=== PATIENT | female | born 1970 | race Caucasian/White ===

== ENCOUNTER 2016-11-10 10:25 | Emergency (ER) | payer OTHER ==
[~2016-11-10] VITALS: Ht 175.3 cm; Wt 80.7 kg
[~2016-11-10 10:25] MED LIST: FOLIC ACID1 MG PO; METHOTREXA25 MG/1 ML INJ
[2016-11-10] MEDS ORDERED: IBUPROFEN800 MG PO (10:42)
[2016-11-10] MEDS ORDERED: ZOFRAN ODT4 MG PO (11:47)
[2016-11-10] MEDS ORDERED: BENTYL10 MG PO (11:47)
== END 2016-11-10 12:15 | disposition home or self-care (01) ==
LOC: ED 10:25
DX: R10.32 Left lower quadrant pain (principal); F17.200 Nicotine dependence, unspecified, uncomplicated; Z90.710 Acquired absence of both cervix and uterus; Z90.49 Acquired absence of other specified parts of digestive tract; Z88.5 Allergy status to narcotic agent; Z88.1 Allergy status to other antibiotic agents; Z79.899 Other long term (current) drug therapy
CPT/HCPCS: 80053; 81001; 85025; 96361; 96374; 96375; 99283; J1170; J1885; J2405; J7030

== ENCOUNTER 2018-07-18 17:50 | Emergency (ER) | payer OTHER ==
--- OUTSIDE RECORDS SUMMARY | ~2018-07-18 | XMS | Clinical Summary ---
Demographics + + + | Address | [address] | | | [place] [address] | + + + | Home Phone | | + + + | Preferred Language | Unknown | + + + | Marital Status | Single | + + + | Hindu Affiliation | Unknown | + + + | Race | Unknown | + + + | Ethnic Group | Unknown | + + + Author + + + | Author | [facility] | | | and Devynana | + + + | Organization | [facility] | | | and Devynana [...] [place], [place] | | | | | [address] | | + + + + + Care Team Providers + +------+ + | Care Customer Account Representative Name | Role | Phone | + [...] +--------+ +---------+------+ | GEHA | GEHA | [id number] | | [phone] | | PPO | | | AETNA | | 016-Pr | 6 | | | | | PPO | | esent | | | | +-------+--------+ +--------+ +---------+------+ | SERENITYROSARIO | GUILLAUME | [id number] | [birth year]29[birth year] | [phone] | | PPO [...] | 1971 | [phone] | [place] [address] | | | larisa | | | 8 (Home) | | + +--------+ +--------+ + + | Remedios Michelle | Person | Self | [birth year] | | [address] | | | al/Fam | | 1971 | [phone] | [address] [place] | | | [place] | | | 8 (Home) | [address] | + +--------+ +--------+ + + Advance Directives Patient has advance care planning documents, and code status on file. For more information, please contact:[facility] [place] Cabrera [address] + + + + + | Code Status | Date | Date | Comments | | | Activated | Inactivated | | + + + + + | Full Code | 05/18/2017 | 05/19/2017 | | | | 14:00 | 23:08 | | + + + + +
--- OUTSIDE RECORDS SUMMARY | ~2018-07-18 | XMS | Clinical Summary ---
Demographics + + + | Address | [address] | | | [place] [address] | + + + | Home Phone | | + + + | Preferred Language | Unknown | + + + | Marital Status | Single | + + + | Scientologist Affiliation | Unknown | + + + | Race | Unknown | + + + | Ethnic Group | Unknown | + + + Author + + + | Author | [facility] | | | and Devynana | + + + | Organization | [facility] | | | and Devynana [...] [place], [place] | | | | | [address] | | + + + + + Care Team Providers + +------+ + | Care Animal Ride Attendant Name | Role | Phone | + [...] +--------+ +---------+------+ | GEHA | GEHA | [id number] | | [phone] | | PPO | | | AETNA | | 016-Pr | 6 | | | | | PPO | | esent | | | | +-------+--------+ +--------+ +---------+------+ | SERENITYROSARIO | GUILLAUME | [id number] | [birth year] | [phone] | | PPO [...] | 1971 | [phone] | [place] [address] | | | [place]isa | | | 8 (Home) | | + +--------+ +--------+ + + | Remedios Michelle | Person | Self | [birth year] | | [address] | | | al/Fam | | 1971 | [phone] | [address] [place] | | | [place] | | | 8 (Home) | [address] | + +--------+ +--------+ + + Advance Directives Patient has advance care planning documents, and code status on file. For more information, please contact:[facility] [place]rera [address] + + + + + | Code Status | Date | Date | Comments | | | Activated | Inactivated | | + + + + + | Full Code | 05/18/2017 | 05/19/2017 | | | | 14:00 | 23:08 | | + + + + +
[~2018-07-18 17:50] MED LIST changes: +BENTYL10 MG PO; +IBUPROFEN800 MG PO; +ZOFRAN ODT4 MG PO
[2018-07-18] MEDS ORDERED: NORCO 7.5-3251 EACH PO (19:48)
[2018-07-18] MEDS ORDERED: ONDANSETRON ODT8 MG PO (19:55)
== END 2018-07-18 20:02 | disposition home or self-care (01) ==
LOC: ED 17:50
DX: S16.1XXA Strain of muscle, fascia and tendon at neck level, initial encounter (principal); S40.012A Contusion of left shoulder, initial encounter; S70.01XA Contusion of right hip, initial encounter; V49.9XXA Car occupant (driver) (passenger) injured in unspecified traffic accident, initial encounter; Z88.5 Allergy status to narcotic agent; Z88.1 Allergy status to other antibiotic agents; Z79.899 Other long term (current) drug therapy
CPT/HCPCS: 71046; 72125; 72170; 73030; 81001; 85025; 96374; 96375; 96376; 99284-25; G0480; J1170; J1885; J2405

== ENCOUNTER 2018-07-25 12:23 | Emergency (ER) | payer OTHER ==
[~2018-07-25] VITALS: Ht 177.8 cm; Wt 65.8 kg
--- OUTSIDE RECORDS SUMMARY | ~2018-07-25 | XMS | Clinical Summary ---
Demographics + + + | Address | [address] | | | [place] [address] | + + + | Home Phone | | + + + | Preferred Language | Unknown | + + + | Marital Status | Single | + + + | Gnosticist Affiliation | Unknown | + + + | Race | Unknown | + + + | Ethnic Group | Unknown | + + + Author + + + | Author | [facility] | | | and Devynana | + + + | Organization | [facility] | | | and Devynana | + + + | Address | Unknown | + + + | Phone | Unavailable | + + + Support + + + + + | Name | Relationship | Address | Phone | + + + + + | David Michelle | ECON | [address] | | | | | [place], [place] | | | | | [address] | | + + + + + Care Team Providers + +------+ + | Care Senior Sas Programmer Name | Role | Phone | + +------+ + | David Black DO | PP | Unavailable | + +------+ + Allergies + + + + + + | Active Allergy | Reactions | Severity | Noted | Comments | | | | | Date | | + + + + + + | Azithromycin | | | 09/18/19 | | | | | | 16 | | + + + + + + | Codeine | Hives, Swelling | | 09/18/19 | Tongue swelling | | | | | 16 | | + + + + + + | Erythromycin | Hives, Swelling | | 04/21/19 | Tongue swelling | | | | | 18 | | + + + + + + Medications + + + +---------+------+------+-------+ | Medication | Sig | Dispensed | Refills | Star | End | Statu | | | | | | t | Date | s | | | | | | Date | | | + + + +---------+------+------+-------+ | methotrexate (PF) | Inject 15 mg under | | 0 | | | Activ | | 25 mg/mL injection | the skin Once a | | | | | e | | | week. | | | | | | + + + +---------+------+------+-------+ | folic acid 1 mg | Take 1 mg by mouth | | 0 | | | Activ | | tablet | Daily. | | | | | e | + + + +---------+------+------+-------+ | cyanocobalamin | Take 50 mcg by mouth | | 0 | | | Activ | | (VITAMIN B-12) 50 | Daily. | | | | | e | | MCG tablet | | | | | | | + + + +---------+------+------+-------+ | raNITIdine | Take 150 mg by mouth | | 0 | | | Activ | | (ZANTAC) 150 mg | Twice daily as | | | | | e | | tablet | needed for | | | | | | | | Heartburn. | | | | | | + + + +---------+------+------+-------+ | ondansetron | | | 0 | 02/2 | | Activ | | (ZOFRAN ODT) 4 mg | | | | 8/20 | | e | | disintegrating | | | | 18 | | | | tablet | | | | | | | + + + +---------+------+------+-------+ | oxyCODONE | | | 0 | 02/2 | | Activ | | (ROXICODONE) 5 mg | | | | 8/20 | | e | | tablet | | | | 18 | | | + + + +---------+------+------+-------+ Active Problems + + + | Problem | Noted Date | + + + | Sjogren's disease | 04/21/2017 | + + + | Rheumatoid arthritis with positive rheumatoid factor | 04/21/2017 | + + + | Sialolithiasis | 04/21/2017 | + + + | Sialadenitis | 04/21/2017 | + + + Family History + + +------+ + | Medical History | Relation | Name | Comments | + + +------+ + | Other cancer | Father | | larynx | + + +------+ + | Other (see comment) | Maternal | | a-fib | | | Grandmoth | | | | | er | | | + + +------+ + | Other (see comment) | Mother | | a-fib | + + +------+ + | Other cancer | Mother | | cervical/uterin | + + +------+ + + +------+--------+ + | Relation | Name | Status | Comments | + +------+--------+ + | Father | | | | + +------+--------+ + | Maternal Grandmother | | | | + +------+--------+ + | Mother | | | | + +------+--------+ + Social History + +-------+ +--------+------+ | Tobacco Use | Types | Packs/Day | Years | Date | | | | | Used | | + +-------+ +--------+------+ | Never Smoker | | | | | + +-------+ +--------+------+ + +---+---+---+ | Smokeless Tobacco: | | | | | Never Used | | | | + +---+---+---+ + + +---------+ + | Alcohol Use | Drinks/We | oz/Week | Comments | | | ek | | | + + +---------+ + | No | 0 | 0.0 | | | | Standard | | | | | drinks or | | | | | | | | | | equivalen | | | | | t | | | + + +---------+ + + + + | Sex Assigned at | Date Recorded | | | | + + + | Not on file | | + + + + + + + | Job Start Date | Occupation | Industry | + + + + | Not on file | Not on file | Not on file | + + + + + + + + | Travel History | Travel Start | Travel End | + + + + + + | No recent travel history available. | + + Last Filed Vital Signs + + + + | Vital Sign | Reading | Time Taken | + + + + | Blood Pressure | 120/64 | 05/24/20171522 PST | + + + + | Pulse | 82 | 05/24/20171522 PST | + + + + | Temperature | 36.8 C (98.2 F) | 05/19/2017 1141 PST | + + + + | Respiratory Rate | 16 | 05/24/20171522 PST | + + + + | Oxygen Saturation | 99% | 05/24/20171522 PST | + + + + | Inhaled Oxygen | - | - | | Concentration | | | + + + + | Weight | 72.6 kg (160 lb) | 05/24/20171522 PST | + + + + | Height | 177.8 cm (5' 10") | 05/24/20171522 PST | + + + + | Body Mass Index | 22.96 | 05/24/20171522 PST | + + + + Plan of Treatment + + + + + | Health Maintenance | Due Date | Last Done | Comments | + + + + + | Vaccine: | | | | | Dtap/Tdap/Td (1 - | 1 | | | | Tdap) | | | | + + + + + | Cervical Cancer | | | | | Screening (Pap) | 2 | | | + + + + + | Vaccine: Influenza | | | | | (Season Ended) | 9 | | | + + + + + Results Not on filefrom Last 3 Months Insurance +-------+--------+ +--------+ +---------+------+ | Payer | Benefi | Subscriber | Effect | Phone | Address | Type | | | t Plan | ID | bryant | | | | | | / | | Dates | | | | | | Group | | | | | | +-------+--------+ +--------+ +---------+------+ | GEHA | GEHA | [id number] | | [phone] | | PPO | | | AETNA | | 016-Pr | 6 | | | | | PPO | | esent | | | | +-------+--------+ +--------+ +---------+------+ | SERENITYROSARIO | GUILLAUME | [id number] | [birth year]/29/ | [phone] | | PPO | | | AETNA | | 2017-P | 6 | | | | | PPO | | resent | | | | +-------+--------+ +--------+ +---------+------+ + +--------+ +--------+ + + | Guarantor Name | Accoun | Relation to | Date | Phone | Billing Address | | | t Type | Patient | of | | | | | | | | | | + +--------+ +--------+ + + | Remedios Michelle | Person | Self [birth year] | [address] | | | al/[place] | | 1971 | [phone] | [place] [address] | | | [place] | | | 8 (Home) | | + +--------+ +--------+ + + | Remedios Michelle | Person | Self | [birth year] | | [address] | | | al/Fam | | 1971 | [phone] | [address] [place] [place] | | | [place] | | | 8 (Home) | [address] | + +--------+ +--------+ + + Advance Directives Patient has advance care planning documents, and code status on file. For more information, please contact:[facility] [place]rera [address] + + + + + | Code Status | Date | Date | Comments | | | Activated | Inactivated | | + + + + + | Full Code | 05/18/2017 | 05/19/2017 | | | | 14:00 | 23:08 | | + + + + +
--- OUTSIDE RECORDS SUMMARY | ~2018-07-25 | XMS | Clinical Summary ---
Demographics + + + | Address | [address] | | | [place] [address] | + + + | Home Phone | | + + + | Preferred Language | Unknown | + + + | Marital Status | Single | + + + | Church Affiliation | Unknown | + + + | Race | Unknown | + + + | Ethnic Group | Unknown | + + + Author + + + | Author | [facility] | | | and Devynana | + + + | Organization | [facility] | | | and Dveynana | + + + | Address | Unknown | + + + | Phone | Unavailable | + + + Support + + + + + | Name | Relationship | Address | Phone | + + + + + | David Michelle | ECON | [address] | | | | | [place], [place] | | | | | [address] | | + + + + + Care Team Providers + +------+ + | Care Eye Surgeon Name | Role | Phone | + [...] +--------+ +---------+------+ | GEHA | GEHA | [id number] | | [phone] | | PPO | | | AETNA | | 016-Pr | 6 | | | | | PPO | | esent | | | | +-------+--------+ +--------+ +---------+------+ | SERENITYROSARIO | GUILLAUME | [id number] | [birth year]/29/ | [phone] | | PPO [...] | 1971 | [phone] | [place] [address] | | | [place] | | | 8 (Home) | | + +--------+ +--------+ + + | Remedios Michelle | Person | Self | [birth year] | | [address] | | | al/Fam | | 1971 | [phone] | [address] [place] [place] | | | [place] | | | 8 (Home) | [address] | + +--------+ +--------+ + + Advance Directives Patient has advance care planning documents, and code status on file. For more information, please contact:[facility] [place] Cabrera [address] + + + + + | Code Status | Date | Date | Comments | | | Activated | Inactivated | | + + + + + | Full Code | 05/18/2017 | 05/19/2017 | | | | 14:00 | 23:08 | | + + + + +
[~2018-07-25 12:23] MED LIST changes: +NORCO 7.5-3251 EACH PO; +ONDANSETRON ODT8 MG PO
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
[2018-07-25] MEDS ORDERED: METHYLPHENIDATE54 MG PO (12:45)
[2018-07-25] MEDS ORDERED: CYCLOBENZAPRINE10 MG PO (12:46)
[2018-07-25] MEDS ORDERED: DICYCLOMINE HCL10 MG PO (14:36)
[2018-07-25] MEDS ORDERED: NORCO 5-325 TA1 EACH PO (14:36)
== END 2018-07-25 14:52 | disposition home or self-care (01) ==
LOC: ED 12:23
DX: R10.9 Unspecified abdominal pain (principal); Z90.49 Acquired absence of other specified parts of digestive tract; Z90.710 Acquired absence of both cervix and uterus; Z88.5 Allergy status to narcotic agent; Z88.1 Allergy status to other antibiotic agents; Z79.899 Other long term (current) drug therapy
CPT/HCPCS: 74177; 80053; 85025; 99284-25; J1170; J2405; Q9967

== ENCOUNTER 2019-05-18 11:57 | Inpatient (IN) | payer OTHER ==
[~2019-05-18] VITALS: Ht 177.8 cm; Wt 65.8 kg
[~2019-05-18 11:57] MED LIST changes: +CYCLOBENZAPRINE10 MG PO; +DICYCLOMINE HCL10 MG PO; +METHYLPHENIDATE54 MG PO; +NORCO 5-325 TA1 EACH PO
--- NOTE | 2019-05-18 16:10 | NUR ---
Pt arrived from ed on gourney. Pt alert and oriented. vss on room air. NG tube hooked up to LIWS. Pt assessment completed. call light in reach. IVF infusing as ordered.
--- NOTE | 2019-05-18 16:35 | NUR ---
PT REPORTS NAUSEA. PT REQUESTED AND RECEIVED PRN IV PHENERGAN -SEE EMAR. CALL LIGHT IN REACH. NG REMAINS TO LIWS, DRAINING CLEAR BROWN GASTRIC FLUIDS.
--- NOTE | 2019-05-18 17:43 | NUR ---
Med rec completed.
--- NOTE | 2019-05-18 18:10 | NUR ---
PT REPORTS SHARP AND ACHING ABDOMINAL PAIN OF 8/10. PRN IV MORPHINE ADMINISTERED PER PT REQUEST. CALL LIGHT IN REACH. PT REMIANS ON LIWS, DRAINING CLEAR BROWN GASTRIC FLUIDS. PT DENIES FURTHER NEEDS OR CONCERNS. AID IN TO COMPLETED VS'S.
--- NOTE | 2019-05-18 20:00 | NUR ---
NGT Marlon lafleur, patent, draining cranberry colored drainage. On room air, coop with assessment. SCDS in place. IVF infusing. Medicated with Toradol 30mg IV per 8/10 abd pain. NPO for am procedure. Dr Currie here earlier and new orders received. Pt does own mouth care. Awake, alert and oriented, Visiting with family. sitting up in bed
--- NOTE | 2019-05-18 21:23 | NUR ---
c/o abd pain, medicated iwth 1mg IV Dialaudid per 10 abd pain. Up to br, voided, back to bed with assist, NGT patent, no n/v
--- NOTE | 2019-05-18 22:47 | NUR ---
PT C/O ITCHING ALL OVER AFTER TAKING DILAUDID ABOUT 1 HR AGO, DENIES C/O SOB. DR GORDILLO NOTIFIED, NEW ORDERS RECEIVED, DC DILAUDID, RESTART MORPHINE 2-4 MG Q2HP AND GIVE BENADRYL 2MG IV. PT NOTIFIED, DECELINES BENADRYL AT THIS TIME. ' I WILL CALL YOU IF I NEED IT
--- NOTE | 2019-05-18 22:58 | NUR ---
c/o feeling nauseated at 2234, declined zofran, medicated with phenergarn 6.25mg. effective at this time, c/oi itching, medicated with 12.5mg IV Benaddryl itching. awake, watching tv and visiting with family
--- NOTE | 2019-05-19 00:40 | NUR ---
up to br, voided dark yellow-orange urine. Medicated with Morphine 4mg IV c/o 09/28 abd pain. NGT patent, no further c/o itching
--- NOTE | 2019-05-19 01:07 | NUR ---
Provided pt with warm blanket.
--- NOTE | 2019-05-19 04:01 | NUR ---
HAS NOT SLEPT THIS SHIFT. MEDICATED WITH ZOFRAN 8MG IV PER C/O FEELING NAUSEATED, C/O 8/10 ABD PAIN. MEDICATED WITH TORADOL 30MG IV. NGT PATENT R NARE, DRAINING COPIOUS AMOUNTS OF CRANBERRY COLORED DRAINAGE, NG TO ILWS. SCDS IN PLACE. VERY ANXIOUS, EASILY REASSURED, TURNS SELF IN BED. NPO, DOES OWN MOUTH CARE. CALL LIGHT AT BEDSIDE
--- NOTE | 2019-05-19 05:55 | CONS ---
[facility] [address] [place], [place] [address] Signed DATE OF CONSULTATION: 05/18/2019 CHIEF COMPLAINT: Epigastric and left upper quadrant abdominal pain. HISTORY OF PRESENT ILLNESS: Remedios is a 48-year-old female, I have known for many years to our local [employer]. 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 The last 4 days, she has been having rather significant epigastric and left upper quadrant abdominal pain with vomiting and no bowel movement. She finally came to emergency room for evaluation. White count is 10.8, the bicarb is a little low at 17, but the urine specific gravity is also high at 1.069. She seemed to be mildly tender in the epigastric to left upper quadrant area. She has also been a little tachycardic. She required some morphine to control the pain. She therefore had a CT scan of the abdomen and pelvis performed. There appeared to be some loops of dilated small bowel on the left upper quadrant with maybe some tethering. She has moderate stool in the colon and also some diverticulosis and NG tube is in place since she has return of moderately dark bilious gastric fluid, it is at least a liter at this point. The ER physician had called me with respect to the above. She has since been admitted and overall doing fine except the morphine is worn off and her pain has come back. PAST MEDICAL HISTORY: Diverticulosis, Sjogren syndrome, and rheumatoid arthritis. PAST SURGICAL HISTORY: Includes laparoscopic cholecystectomy, hysterectomy, appendectomy, bilateral foot surgery, right knee surgery, tonsillectomy, and adenoidectomy. SOCIAL HISTORY: She quit smoking. She does not drink. She is currently and has 3 children. She prefers the [facility]. Brooke Christie is her sister at [phone]. Shannan Juárez is her primary care provider. 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 FAMILY HISTORY: Mom had cervical and uterine cancer. Dad had squamous cell carcinoma of the esophagus. REVIEW OF SYSTEMS: She had 10 systems reviewed and the diverticulosis was new to her. There is no metal in her body. Electronically Signed By: GODFREY CURRIE MD 05/19/19 0555 PATIENT NAME: REMEDIOS HENSLEY CONSULTATION DATE OF : 72 REPORT #: [id number] PHYSICIAN: GODFREY CURRIE MD PCP: SHANNAN JUÁREZ PA-C REPORT IS CONFIDENTIAL AND NOT TO BE RELEASED WITHOUT AUTHORIZATION [facility] [address] [place], [place] [address] Signed ALLERGIES: Codeine and erythromycin. MEDICATIONS: Zofran and methylphenidate. PHYSICAL EXAMINATION: VITAL SIGNS: Blood pressure 138/81, heart rate is 115, respiratory rate 18, temperature is 97.8. She is 100% on room air, she is 5 feet 10 inches, and 65 kg. GENERAL: Remedios is a 48-year-old female, who is sitting supine semiupright in her hospital bed, watching TV. NG tube is in place. There was at least a liter of moderately bilious gastric fluid in the canister. She appears to be in mild distress from her abdominal pain. LUNGS: Generally clear to auscultation bilaterally. HEART: Mildly tachycardic, but no murmurs. ABDOMEN: Soft, flat, and she points to tenderness in the epigastric and left subcostal area. LABORATORY DATA: Her white blood cell count is 10.8, hemoglobin 15 neutrophils 77. BUN 11, creatinine 0.72, CO2 of 17. Her urine specific gravity is up 1.069. Liver function tests are negative. Albumin is 4. Lipase negative. RADIOGRAPHIC STUDIES: A chest x-ray shows clear lungs with the NG tube in the stomach. The CT scan shows the left upper quadrant mildly dilated small bowel loops with some tethering and also some moderate stool in the colon and diverticulosis. ASSESSMENT AND PLAN: Remedios is a 48-year-old female, who presents with what appears to be a small-bowel obstruction, probably somewhat isolated due to tethering and findings on the CT scan. It has been already several days. She is still dehydrated and tachycardic. I think at this point, we are going to keep her NG tube and hydrate her overnight and provide her with some pain control. If she is not improved by morning, we may add her on tomorrow for a laparotomy with lysis of adhesions. I have reviewed this with Remedios in detail, she has expressed understanding and agrees above plan. Godfrey Currie MD ALB/MODL Electronically Signed By: GODFREY CURRIE MD 05/19/19 0555 PATIENT NAME: REMEDIOS HENSLEY CONSULTATION DATE OF : 72 REPORT #: [id number] PHYSICIAN: GODFREY CURRIE MD PCP: SHANNAN JUÁREZ PA-C REPORT IS CONFIDENTIAL AND NOT TO BE RELEASED WITHOUT AUTHORIZATION [facility] [address] [place], [place] [address] Signed /[id number] cc: MD Shannan Calderon PA-C Copies: GODFREY CURRIE MD, CHLOE K PA-C ~ Electronically Signed By: GODFREY CURRIE MD 05/19/19 0555 PATIENT NAME: REMEDIOS HENSLEY CONSULTATION DATE OF : 72 REPORT #: [id number] PHYSICIAN: GODFREY CURRIE MD PCP: SHANNAN JUÁREZ PA-C REPORT IS CONFIDENTIAL AND NOT TO BE RELEASED WITHOUT AUTHORIZATION
--- NOTE | 2019-05-19 06:16 | NUR ---
DR GORDILLO IN ASSESSING PT. DR NOTIFIED OF PT LOW BP 91/61 AND LOW OUTPUT SINCE 2300 TO 0600 HAS VOIDED ONLY 175, R NGT HAS DRAINIED 750CC DARK CRANBERRY COLORED DRAINAGE. PT C/O ABD PAIN, HAS BEEN MEDICATED WITH TORADOL X2, DILAUDID X2, MS X1. WAS C/O ITCHING AND WAS MEDICATED WITH BENADRYL X2. C/O DRY HEAVING AND FEELING NAUSEATED WAS MEDICATED WITH IV PHENERGAN X2 AND ZOFRAN 1X, ALL MEDS WITH FAIR TO GOOD RELIEF. GETS UP TO BR WITH HELP, SCDS IN PLACE, IVF INFUSING. DR ORDERED A IL LR BOLUS THATS INFUSING RIGHT NOW. PT NPO, DOES OWN MOUTH CARE, VERY ANXIOUS AND ANTSY, REORIENTES EASILY.
--- NOTE | 2019-05-19 06:36 | NUR ---
PT MEDICATED WITH MORPHINE 4MG IV 11/29 ABD PAIN, NO N/V. R NGT PATENT TO [facility]. NPO
--- NOTE | 2019-05-19 07:37 | NUR ---
0717: Pt resting in her bed with her call landaverde within reach. Report received from Fina hoyt.
--- NOTE | 2019-05-19 09:00 | NUR ---
PATIENT UP TO SHOWER WITH HIBBIA CLEANS. LINENS CHANGED.
--- NOTE | 2019-05-19 09:37 | NUR ---
PT STATES SHE HAS SOME NAUSEA AND PAIN RATED AT AN 8/10. PT MEDICATED FOR NAUSEA AND WILL MEDICATE FOR PAIN. PT SITTING IN HER BED USING HER PHONE AT THIS TIME. K+ BEING REPLACED ORDERED. SEE EMAR.
--- NOTE | 2019-05-19 10:47 | NUR ---
Pt had not voided since the start of this shift. I requested to pt go to the br and void which she did. She void 100 ml of dark urine. Dr Currie called and a message was left to notify him of the decreased urine output.
--- NOTE | 2019-05-19 11:39 | NUR ---
Pt taken by the surgical team at this time.
--- NOTE | 2019-05-19 13:58 | NUR ---
In for CM assessment. Pt is gone for surgery. Will follow up Wednesday.
--- NOTE | 2019-05-19 14:26 | NUR ---
05/19/19 1426 Opal Loomis 1414-PT ARRIVES TO PACU ON 10 L VIA MASK. PT REACTIVE AND RESPONSIVE TO VERBAL STIMULUS. PT REPORTS "A LOT" OF PAIN BUT UNABLE TO RATE PAIN ON PAIN SCALE. NG TUBE AND FORBES IN PLACE. SURGICAL SITE C/D/I. PT HAD GENERAL ANESTHESIA WITH TAP BLOCKS. VSS. SATS 100%. 1420-PT ASLEEP AND SNORING IN BED. WAKES TO VERBAL STIMULUS. REPORTS PAIN BUT CANT DESCRIBE OR PINPOINT LOCATION OF IT. PT BACK TO SLEEP AND SNORING. VSS.
--- NOTE | 2019-05-19 15:46 | NUR ---
1545: Pt returned to her room from PACU, report received from Opal NICK. Pt states her pain is a 7/10 at this time and she is drowsy and quickly fell to sleep. CPOX placed at this time.
--- NOTE | 2019-05-19 16:04 | NUR ---
PT SLEEPING, SAT 90% ON ROOM AIR. SCD'S ON AND RUNNING. MIDLINE ABD DRESSING CDI WITH ICE IN PLACE. IV RUNNING D5LR AT 150 ML/HR ORDERED. PT'S MOTHER REMAINS AT THE BEDSIDE.
--- NOTE | 2019-05-19 16:23 | NUR ---
DR GORDILLO CALLED AND NEW ORDERS RECEIVED FOR NGT SUCTION AND AN IV BOLUS. SEE ORDERS.
--- NOTE | 2019-05-19 16:38 | NUR ---
NGT TO LOW INTERMITTENT WALL SUCTION ORDERED. PT RECEIVING LR BOLUS ORDERED. PT SLEEPING SAT 94% ON ROOM AIR.
--- NOTE | 2019-05-19 17:48 | NUR ---
Pt sleeping on arrival to her room, she awoke to touch so vital could be checked.
--- NOTE | 2019-05-19 18:18 | NUR ---
MIDLINE DRESSING REMAINS CDI. ICE BAG REFILLED.
--- NOTE | 2019-05-19 20:50 | NUR ---
ADJUNCT POLITICAL SCIENCE INSTRUCTOR ROUNDING NOTE. PT RESTING IN BED WITH FAMILY AT BEDSIDE. PRIMARY RN IN ROOM. PT DENIES QUESTIONS. STATES THAT SHE DOES NOT WANT TO BE CHARGED FOR A SECOND BOTTLE OF CHLORASEPTIC, SINCE SOMEONE REMOVED THE FIRST FROM HER ROOM. PT DENIES FURTHER NEEDS. CRISTINA SEVERINO UDPATED.
--- NOTE | 2019-05-19 20:53 | NUR ---
Up in bed, visiting. c/o feeling nauseated and painful abd. medicated with zofran 8mg iv and morphine 4mg iv 10/29 abd pain. abhijit bt's abd, midline abd dressing CDI. scds in place. R NGT patent, draining brown colored drainage. patent. to ILWS. alert and oriented, IV F infusing, scds in place, denies passing gas
--- NOTE | 2019-05-19 21:47 | NUR ---
c/o itching, medicated with Benadryl 12.5mg IV. CPOX in place, R 16, sats 93% on room air, P68. IVF infusing, NGT opatent, F?C draining small amouantslight rachel urine. Abd midline dressing CDI. SCDS in place
--- NOTE | 2019-05-19 22:29 | OR ---
[facility] [address], [place] [address] Signed DATE OF OPERATION: 05/19/2019 SURGEON: Godfrey Gordillo MD PREOPERATIVE DIAGNOSES: 1. Possible small-bowel obstruction. 2. Left upper quadrant abdominal pain. 3. Dehydration. POSTOPERATIVE DIAGNOSES: 1. Minimally dilated proximal jejunum without transition point. 2. Proximal jejunal serosal nodule (4 mm). PROCEDURES PERFORMED: 1. Diagnostic laparotomy. 2. Minimal lysis of adhesions. 3. Biopsy of proximal jejunal serosal nodule. ESTIMATED BLOOD LOSS: None. FINDINGS: We ran Remedios's small bowel from the ligament of Treitz all the way down to her ileocecal valve. She had mildly dilated proximal jejunum, but no obvious transition point and no internal hernia. She had just a few adhesions closer to her ileocecal valve involving her prior appendectomy. However, the cecum is quite mobile. There were no inflammatory changes to the jejunum or the surrounding mesentery. We could easily see the inferior mesenteric vein and palpate her aorta without any lymphadenopathy. She had a small, fibrous-appearing serosal nodule that we removed for pathologic review. The stomach, liver, upper portion, and spleen all unremarkable. No evidence of any irritation in the peritoneum. INDICATION: Remedios is a 48-year-old female I have known for many years, both of our sons are in sports here in our community. 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 Remedios has Sjogren syndrome, rheumatoid arthritis, and little diverticulosis, but otherwise pretty healthy. She had a previous laparoscopic cholecystectomy, laparoscopic hysterectomy. She had an open appendectomy Electronically Signed By: GODFREY GORDILLO MD 05/19/19 2229 PATIENT NAME: REMEDIOS HENSLEY OPERATIVE REPORT DATE OF : 72 REPORT #: [id number] PHYSICIAN: GODFREY GORDILLO MD PCP: SHANNAN OLIVIA PA-C REPORT IS CONFIDENTIAL AND NOT TO BE RELEASED WITHOUT AUTHORIZATION [facility] [address], [place] [address] Signed through a transverse right lower quadrant incision. Four days prior to this admission, she was having rather significant very pinpoint left upper quadrant abdominal pain with vomiting and dehydration. She had had no bowel movement for several days. When it was not getting better, she finally came to emergency room for evaluation. She was a little tachycardic and requiring morphine and Dilaudid for pain control. Her white count was borderline at 10.8. Her urine specific gravity was elevated at 1.069. Other tests were unremarkable including the liver function tests and her lipase. She underwent a CT scan of abdomen and pelvis and she had mildly dilated proximal loops of jejunum with what appeared to be some tethering to the mesentery in that area directly underneath where she was pointing. She had moderate stool burden in the colon, but did not feel particularly constipated and she has a little diverticulosis, but no evidence of any diverticulitis. I have been asked to admit her as a general surgeon on-call. An NG tube was placed and we withdrew over 1800 mL of light to moderately dark bilious gastric fluid. She was hydrated overnight with additional bolus this morning. Overall, she looked and felt better. Her abdomen was never distended, but she had pinpoint tenderness in that left subcostal area. She was making urine, but not a significant amount. I had had a long discussion with Remedios and we had repeated the labs and they were really no different. In fact, the lactic acid came back fine. In the end, she was continuing to have significant amount of pain, high NG tube output, and low urine output. We decided to proceed with at least mini-diagnostic laparotomy and to evaluate that area and around the small bowel. She understands the nature of that surgery along with the idea that we might have to extend the incision based on our intraoperative findings. There is always a possibility for small bowel resection. She understands there is risk of surgery including, but not limited to bleeding, infection, scarring, change in contour of the skin, as well as possible anastomotic leak, incisional hernias, and other unforeseen comorbidities. She had expressed understanding and wished to proceed. PROCEDURE NOTE: I met with Remedios again this morning and in our preop area. After reviewing her current findings, she maintained her desire to proceed with surgery. She was taken to the operating room and placed in a supine position under general endotracheal tube anesthesia. She was given Rocephin and Flagyl prior to surgery. She was on Lovenox along with her SCDs. A Navarrete catheter had been inserted without difficulty with return of moderately dark rachel colored urine. She received bilateral TAP blocks by our nurse single ending machine operator. After this, she was prepped and draped in the usual sterile fashion. We started with a midline vertical supraumbilical incision about 5 or so centimeters in length. We carried this into the abdomen without difficulty with the help of cautery. We then explored the abdomen through this mini-laparotomy incision. We were able to run small bowel from the ligament of Treitz all the way down to the ileocecal valve. Indeed, she had some mild dilation to the proximal jejunum without a transition point. The bowel wall was not edematous. There were no inflammatory changes. There was no fat Electronically Signed By: GODFREY GORDILLO MD 05/19/19 2229 PATIENT NAME: REMEDIOS HENSLEY OPERATIVE REPORT DATE OF : 72 REPORT #: [id number] PHYSICIAN: GODFREY GORDILLO MD PCP: SHANNAN OLIVIA PA-C REPORT IS CONFIDENTIAL AND NOT TO BE RELEASED WITHOUT AUTHORIZATION [facility] [address], [place] [address] Signed wrapping. We could see the inferior mesenteric vein and palpate the aorta. There was no palpable lymphadenopathy or visible lymphadenopathy. She had a very small fibrous 4 mm serosal proximal jejunal nodule, which we excised and passed off for pathologic review. Fortunately, she had no adhesions throughout the abdomen and none underneath her previous right lower quadrant appendectomy incision. She had just a few adhesions of the omentum down around the area of the appendix, but we could easily follow her ileum directly into the cecum itself. The cecum was quite mobile and we were able to bring that over towards the midline. We saw no inflammatory changes in the mesentery or around the peritoneum, stomach, or the left side of the liver, where we could see the spleen was unremarkable. Consequently, we returned the small bowel back to the abdomen and we closed the midline fascia with interrupted [id number] #1 PDS sutures. Local anesthetic was injected in the abdominal wall in the subcutaneous tissues. The wound was irrigated and suctioned out until clear. We reapproximated the dermis with interrupted 3-0 subcuticular Monocryl sutures. Skin edges were reapproximated with a running 5-0 fast absorbing plain gut suture. Dry gauze and tape were then applied. Remedios was awakened from her anesthesia, extubated in the OR, and taken to recovery room in stable condition. Godfrey Gordillo MD ALB/MODL /[id number] cc: MD Shannan Calderon PA-C Copies: GODFREY GORDILLO MD, CHLOE K PA-C ~ Electronically Signed By: GODFREY GORDILLO MD 05/19/19 2229 PATIENT NAME: REMEDIOS HENSLEY ANDREWS OPERATIVE REPORT DATE OF : 72 REPORT #: [id number] PHYSICIAN: GODFREY GORDILLO MD PCP: SHANNAN OLIVIA PA-C REPORT IS CONFIDENTIAL AND NOT TO BE RELEASED WITHOUT AUTHORIZATION
--- NOTE | 2019-05-19 23:22 | NUR ---
PT UTILIZES CALL LIGHT, REQUESTS PRN TORADOL. PRN ADMINISTERED. PT RATES PAIN 8/10 TO ABD AND STATES THAT THROAT IS IRRITATED FROM NG TUBE. FRESH ICE PACK PROVIDED REQUESTED. PT DENIES FURTHER NEEDS. CALL LIGHT IN REACH.
--- NOTE | 2019-05-20 00:17 | NUR ---
awake, visiting with family, c/o feeling nauseated, medicated with phenergan 12.5mg IV.
--- NOTE | 2019-05-20 03:37 | NUR ---
C/O 10/29 ABD PAIN, MEDICATED WITH MORPHINE 4MG IV, NGT PATENT, IVCF INFUSING, F/C DRAINING DARK TEA COLORED URINE. SCDS IN PLACE, MIDLINE ABD DRESSING CDI. NO FURTHER C/O N/V. CALL LIHGT AT BEDSIDE
--- NOTE | 2019-05-20 05:23 | NUR ---
Pt continous to have NGT Rnare, patent, draining dark brown thick colored drainage. c/o sore throat, using chloraseptic spray with good to fair pain relief. Midline abd dressing CDI, bowel tones present, denies passing gas. IVF infusing w/o problems. F/C patent draining dark tea colored urine. Pt has been medicated with Morphine 4mg IV twice with good pain relief. and with Toradol x1 per c/o abd pain. Zofran X1 per c/o dry heaving. and with Benadryl per c/o itching. All meds with good to fair relief as per pt. Pt very fidgety and anxious at begining of shift, reassured, calmed down. Calmer at this time, awakes easily, slept off and on. CPOX in place, sats 92-97%. SCDS in place. Pt using call light appropriately. NPO. Cooperative
--- NOTE | 2019-05-20 06:28 | NUR ---
pt sitting up in bed. NGT patent. C/o dry heaving, medicated with Zofran 8mg IV and c/o abd and throat pain 11/29 , medicated with Morphine 4mg IV. doing own mouth care. F?C draining dark tea colored urine. scds inplace. still denying passing gas
--- NOTE | 2019-05-20 07:24 | NUR ---
0707: Report received from Fina NICK. Pt resting in her bed using her cell phone at this time. Call landaverde and personal items within reach.
--- NOTE | 2019-05-20 08:25 | NUR ---
DR GORDILLO TO BE NOTIFIED OF URINE OUTPUT.
--- NOTE | 2019-05-20 08:26 | NUR ---
PT'S LUNG SOUNDS ARE COARSE, SAT 97% AND SHE DENIES ANY SOB. PT ENCOURAGED TO DEEP BREATH AND COUGH AND GIVEN AN IS WHICH SHE USED. PT ENCOUAGED TO WALK WHICH SHE STATES SHE WILL DO TODAY. NG TO CHER, IV INFUSING D5LR AT 150, SCD'S ON AND RUNNING. ABD DRESSING CDI WITH ICE IN PLACE. PT STATES HER PAIN IS A 9/10, SEE EMAR.
--- NOTE | 2019-05-20 08:38 | NUR ---
Dr Currie notified of the pt's urine output and coarse lung sounds. He states he is going to see her shortly.
--- NOTE | 2019-05-20 10:11 | NUR ---
NGT REMOVED FROM WALL SUCTION AND PLACED TO A FORBES BAG FOR GRAVITY ORDERED. MIDLINE ABD DRESSING REMOVED, THE SITE HAS SUTURES IN PLACE AND APPEARS HEALTHY WITH NO S/S OF INFECTION NOTED. PT TOLERATED WELL.
--- NOTE | 2019-05-20 10:28 | NUR ---
LEIDY NASSAR'Faina ORDERED, PT TOLERATED IT WELL. PT STATES SHE HAS PAIN AT A 9, SEE EMAR.
--- NOTE | 2019-05-20 10:44 | NUR ---
PATIENT IN BED WATCHING TV. CALL LIGHT IN REACH. NO FURTHER NEEDS AT THIS TIME.
--- NOTE | 2019-05-20 11:04 | NUR ---
PT LYING IN HER BED TEXTING ON HER PHONE AND WATCHING BASKETBALL ON TV. SHE APPEARS IN NO DISTRESS AT THIS TIME.
--- NOTE | 2019-05-20 11:48 | NUR ---
NGT CONTINUES DRAINING TO GRAVITY ORDERED.
--- NOTE | 2019-05-20 12:41 | NUR ---
LUNG SOUNDS NOW CLEAR. THE PT STATES SHE HAS BEEN DEEP BREATHING, COUGHING AND USING HER IS. ABD INCISION REAMINS INTACT AND APPEARS HEALTHY. PT APPEARS COMFORTABLE AND RATES HER PAIN AT A 7 WHICH IS THE LOWEST IT HAS BEEN TODAY. SHE STATES HER NAUSEA NOW UNDER GOOD CONTROL. PT GETTING UP WITH THE REPAIR MANAGER FOR A SHOWER AT THIS TIME.
--- NOTE | 2019-05-20 13:08 | NUR ---
PATIENT UP TO SHOWER AND BACK TO BED, SBA. PATIENT IND IN SHOWER. LINENS CHANGED. NEW GOWN PROVIDED. WARM BLANKET GIVEN. CALL LIGHT IN REACH. NO FURTHER NEEDS AT THIS TIME.
--- NOTE | 2019-05-20 13:21 | NUR ---
PT RETURNED TO HER BED FOLLOWING HER SHOWER. SHE COMAPLAINS OF SOME ITCHING AND WAS MEDICATED ORDERED, SEE EMRA.
--- NOTE | 2019-05-20 13:50 | NUR ---
PT AMBULATED IN THE HALLS AND WALKED A LAP WITH A SBA. PT TOLERATED IT WELL AND WAS STEADY ON HER FEET. PT DECLINED TO SIT UP IN HER CHAIR UPON RETURNING TO HER ROOM. PT NOW BACK TO BED. SCD'S ON AND RUNNING, IV INFUSING, NGT DRAINING GREEN COLORED DRAIANGE BY GRAVITY. CALL BAKER WITHIN REACH.
--- NOTE | 2019-05-20 15:16 | NUR ---
PT CALLED AND COMPLAINS OF PAIN, SEE EMAR.
--- NOTE | 2019-05-20 16:18 | NUR ---
Pt sleeping, sat 94% on room air.
--- NOTE | 2019-05-20 17:16 | NUR ---
PT AWOKE TO VOICE AND AMBULATED TO THE BR AND VOIDED 175 OF DARK URINE WHICH WAS HER FIRST VOID SINCE HER FORBES WAS REMOVED. NGT FLUSHED WITH 40 ML AND THE GRAVITY DRAINAGE BAG WAS DRAINED FOR 175 ML OF GREEN DRAIANGE.
--- NOTE | 2019-05-20 17:31 | NUR ---
URINE OUTPUT REMAINS LOW, DR GORDILLO CALLED AND NOTIFIED. NEW ORDERS RECEIVED.
--- NOTE | 2019-05-20 17:45 | NUR ---
PATIENT IN BED WATCHING TV. CALL LIGHT IN REACH. NO FURTHER NEEDS AT THIS TIME.
--- NOTE | 2019-05-20 17:55 | NUR ---
PT CALLED AND STATES HER ABD PAIN IS A 9/10, SEE EMAR.
--- NOTE | 2019-05-20 20:54 | NUR ---
AMB PT TO BR TO VOID, 200 ML OF DARK URINE. DISCUSSED PAIN CONTROL. ATIVAN GIVEN AND EDUCATED. PT ANXIOUS AND PAINFUL, NGT WNL,
--- NOTE | 2019-05-20 22:10 | NUR ---
HEARING AID TECHNICIAN ROUNDING NOTE. PT RESTING IN BED. IV FLUIDS RECONNECTED AFTER BOLUS. PT DENIES NEEDS, QUESTIONS, OR CONCERNS AT THIS TIME. JOKINGLY STATES THAT WE COULD GET RID OF THE NG TUBE AND PULSE OX. ASKS IF SHE CAN HAVE BENADRYL PRN. PRIMARY RN NOTIFIED. CALL LIGHT IN REACH.
--- NOTE | 2019-05-21 01:30 | NUR ---
PT IN BED, CALL LIGHT IN REACH - EYES CLOSED, RRR
--- NOTE | 2019-05-21 05:05 | NUR ---
amb to br to void, 200 dark urine. emptied 350 green bile from gravity ngt. c/o pain - ativan and ms given iv. call light in reach side rails up - scd on.
--- NOTE | 2019-05-21 07:34 | NUR ---
0708: REPORT RECIEVED FROM JANET NICK. PT RESTING IN HER BED TEXTING ON HER PHONE AND WATCHING TV. CALL SAMUEL WITHIN REACH.
--- NOTE | 2019-05-21 09:41 | NUR ---
NGT TO GRAVITY AND DRAINING. SCD'S ON AND RUNNING. D5LR RUNNING AT 150. BOWEL SOUNDS HYPOACTIVE AND SHE DENIES HAVING PASSED ANY GAS. PT STATES HER PAIN IS A 9/10 DURRING MY ASSESSMENT AND FELL TO SLEEP BEFORE ANYTHING WAS GIVEN. URINE OUTPUT REMAINS LOW, DR GORDILLO WILL BE NOTIFIED. SEE ASSESSMENT.
--- NOTE | 2019-05-21 09:48 | NUR ---
DR GORDILLO NOTIFIED OF THE PT'S URINE OUTPUT.
--- NOTE | 2019-05-21 10:33 | NUR ---
NGT dc'd as ordered which the pt tolerated well and is looking forward to taking a shower with it out. Pt given a glass of ice water has her diet has been advanced to clear liquids. Remedios was encouraged to go slow with the fluids which she states understanding.
--- NOTE | 2019-05-21 11:02 | NUR ---
PT SHOWERING WITH THE HELP OF THE HARNESS PREPARER AT THIS TIME.
--- NOTE | 2019-05-21 12:03 | NUR ---
D5LR RATE INCREASED TO 200 ORDERED.
--- NOTE | 2019-05-21 12:04 | NUR ---
PT WATCHING TV AT THIS TIME WHILE RESTING IN BED.
--- NOTE | 2019-05-21 12:26 | NUR ---
PT CALLED C/O MODERATE PAIN IN HER ARM IN THE AREA OF THE IV. RN ASSESSED AREA, AREA AROUND INSERTION SITE IS TENDER WITH A HARD LUMP. IV STOPPED. SECONDARY IV FLUSHED AND MAG RIDER/FLUIDS RESTARTED IN SECONDARY IV SITE. INFILTRATED IV REMOVED.
--- NOTE | 2019-05-21 12:40 | NUR ---
Pt sleeping at this time.
--- NOTE | 2019-05-21 13:01 | NUR ---
PT RESTING IN HER BED AND WHEN ASKED SHE STATES HER ABD PAIN IS A 9/10 AND SHE STATES HER ABD FEELS A BIT DISTENDED. ABD SOUNDS HYPOACTIVE AND SHE DENIES HAVING HAD PASSED ANY GAS. PT EATING HER CLEAR LIQUID LUNCH AND SHE WAS ENCOUARGED TO EAT LIGHTLY WHICH SHE IS DOING. SEE EMAR.
--- NOTE | 2019-05-21 13:05 | NUR ---
Pt fell to sleep prior to medicating her for pain.
--- NOTE | 2019-05-21 13:10 | NUR ---
Left fa iv site that had infiltrated and has been removed is slightly red and a little firm. Left fa elevated remains elevated and a warm compress was placed.
--- NOTE | 2019-05-21 13:53 | NUR ---
Pt sleeping, left ac iv site remains intact with K+ replacement infusing as ordered.
--- NOTE | 2019-05-21 14:41 | NUR ---
Pt sleeping at this time.
--- NOTE | 2019-05-21 15:21 | NUR ---
PATIENT AND I DID 1 LAP AROUND MED SURG.
--- NOTE | 2019-05-21 15:22 | NUR ---
PATIENT IS LAYING BACK IN BED.
--- NOTE | 2019-05-21 15:38 | NUR ---
PATIENT ASKED FOR A HOT PACK. SO I WENT AND MADE HER ONE.
--- NOTE | 2019-05-21 15:39 | NUR ---
PT WENT TO THE BR AND THEN WALKED A LAP WITH THE HEAVY EQUIPMENT TECHNICIAN. UPON RETURNING HER ROOM SHE STATES HER PAIN IN HER ABD AND BACK IS A 9. SEE EMAR.
--- NOTE | 2019-05-21 16:57 | NUR ---
PT SLEEPING AT THIS TIME.
--- NOTE | 2019-05-21 17:29 | NUR ---
Pt assisted to the BR and voided 500ml. Pt now back to her bed per her request, she is eating her clear liquid dinner at this time.
--- NOTE | 2019-05-21 18:54 | NUR ---
Pt continues to appear drowsy as she did for the better part of this shift. Dr Currie was notified.
--- NOTE | 2019-05-21 19:15 | NUR ---
REPORT RECEIVED FROM DAY SHIFT RN. PT LYING IN BED WITH EYES CLOSED. IVF INFUSING. SCD'S IN PLACE. WHITE BOARD UPDATED. CALL LIGHT IN REACH.
--- NOTE | 2019-05-21 20:10 | NUR ---
CALL LIGHT ANSWERED. PT UP TO BR WITH SBA, GAIT STEADY. BACK TO BED, ILNDA FAIR. PT TEARY AND UPSET THAT SHE HAS NOT BEEN MEDICATED FOR PAIN. STATES "I JUST GET PUSHED OFF". PRN MORPHINE GIVEN IV. MIDLINE ABD INCISION WELL APPROXIMATED WITH GLADYS. NO DRAINAGE OR REDNESS NOTED. BOWEL TONES ACTIVE. PT DENIES PASSING GAS. PT SAYS SHE'S SO PAINFUL THAT IT IS MAKING HER NAUSEOUS BUT DID NOT REQUEST A PRN FOR NAUSEA.
--- NOTE | 2019-05-21 21:30 | NUR ---
NEW IV STARTED PER PROTOCOL IN RIGHT FOREARM. PT LINDA WELL. LEFT AC IV DC'D DUE TO CONSTANT OCCLUSION AND LEAKING. TIP IN TACT. IVF INFUSING AT 150ML/HR. WNL, TIP IN TACT. IVF INFUSING.
--- NOTE | 2019-05-21 22:00 | NUR ---
PT UP TO BR WITH SBA TO VOID 300 ML CLEAR YELLOW URINE. BACK TO BED, LINDA FAIR. PT RATES PAIN 9/10, MEDICATED WITH PRN ORDERED. PT REQUESTING PRN ANTI-ANXIETY DUE TO PAIN MAKING HER ANXIOUS, MEDICATED PER ORDER. JELLO, ICE CHIPS, AND FRESH ICE WATER GIVEN. SCD'S IN PLACE. IVF INFUSING. CALL LIGHT IN REACH.
--- NOTE | 2019-05-21 23:28 | NUR ---
PT RESTING IN BED WITH EYES CLOSED, NAD. RESPIRATIONS EVEN AND UNLABORED. CALL LIGHT IN REACH.
--- NOTE | 2019-05-22 02:20 | NUR ---
PT RESTING IN BED WITH EYES CLOSED. RESPIRATIONS 16. IVF INFUSING. SCD'S IN PLACE. CALL LIGHT IN REACH.
--- NOTE | 2019-05-22 04:25 | NUR ---
UP TO BR TO VOID 600 ML YELLOW URINE. BACK TO BED, LINDA FAIR. PRN GIVEN FOR 910 ABD PAIN. JELLO GIVEN. NO FURTHER NEEDS. CALL LIGHT IN REACH.
--- NOTE | 2019-05-22 06:03 | NUR ---
PT SLEPT WELL. ALERT AND ORIENTED, USES CALL LIGHT APPROPRIATELY. RA. NO NAUSEA. WHEN AWAKE PAIN IS ALWAYS 9/10. PRN MORPHINE AND MOTRIN GIVEN. MEDICATED X 1 FOR ANXIETY. MIDLINE ABDOMINAL INCISION WELL APPROXIMATED, OPEN TO AIR. NO REDNESS OR DRAINAGE. POSITIVE BOWEL TONES. PT DENIES PASSING GAS. SCD'S. IVF.
--- NOTE | 2019-05-22 07:45 | NUR ---
pt resting in bed sba up to toilet able to void without difficulty. states she is feeling anxious would like ativan
--- NOTE | 2019-05-22 10:00 | NUR ---
CM initial assessment completed. Remedios lives in [place] in an apartment. She lives with her 13 yo son and has an older son. States she is not sure if her older son will assist her. Denies use of DME. Denies steps or stairs into her apartment. Denies passing gas or BM. Plans on discharge to home when she meets criteria. Frequently stating she is fine and does not need help.
--- NOTE | 2019-05-22 10:37 | NUR ---
PT SITTING UP IN BED TALKING ON THE PHONE UPON THIS RN ENTERING ROOM. ONCE FINISHED WITH HER CONVERSATION PT REPORTS 8/10 INCISIONAL PAIN. MEDICATED WITH 2 TABS NORCO. PT DENIES NAUSEA, ACTUALLY STATES SHE IS VERY HUNGRY, EDUCATED ON FULL LIQUID DIET. PT ALERT AND ORIENTED TO ALL. MIDLINE INCISION OPEN TO AIR, WELL APPROXIMATED, WITHOUT REDNESS OR INFLAMMATION. CALL LIGHT WITHIN REACH.
--- NOTE | 2019-05-22 13:45 | NUR ---
PT AMB HALLWAY WITH OBED MONTANO, LINDA WELL. BACK TO BED NOW RATING PAIN 8/10 MEDICATED WITH PRN IBUPROFEN AND VISTARIL. PT MAINTAINING CALM CONVERSATION, NO GUARDING OR FACIAL GRIMACE. TAKING PICTURES OF HER INCISION AND SELFIES, ON PHONE OFTEN. PT HAD PAOLA SOUP FOR LUNCH, ONLY THE BROTH AND RICE NOODLES, LINDA WELL SO FAR. CALL LIGHT WITHIN REACH.
--- NOTE | 2019-05-22 16:46 | NUR ---
PT LYING IN BED APPEARS TO BE SLEEPING. EYES CLOSED, RESP EVEN AND UNLABORED. CALL LIGHT WITHIN REACH.
--- NOTE | 2019-05-22 18:40 | NUR ---
PT LINDA FULL LIQUIDS WELL. DENIES NAUSEA. MEDICATED WITH 2 TABS NORCO FOR 8/10 PAIN. PT HAS NOT REPORTED PAIN BELOW AN 8 ALL SHIFT. UP TO SHOWER SHORTLY AFTER MEDICATING. COMPLETED NOW AND BACK TO BED. CALL LIGHT WITHIN REACH.
--- NOTE | 2019-05-22 20:08 | NUR ---
REPORT RECEIVED FROM DAY SHIFT RN. PT LYING IN BED, ALERT AND ORIENTED. NO C/O PAIN OR NAUSEA AT THIS TIME. UP TO BR WITH SBA. PT CURRENTLY AMBULATING IN THE HALLWAY INDEPENDENTLY.
--- NOTE | 2019-05-22 20:30 | NUR ---
PT BACK TO BED AFTER AMBULATING ONE LAP AROUND UNIT, LINDA WELL. MEDICATAED WITH PRN FOR C/O 7/10 ABD PAIN. WARM PACK GIVEN PER REQUEST. ASSESSMENT COMPLETE. MIDLINE INCISION WELL APPROXIMATED, NO REDNESS OR DRAINAGE NOTED. BOWEL TONES ACTIVE, PT DENIES PASSING GAS. SCD'S IN PLACE. IVF INFUSING. ENCOURAGED FLUIDS. NO FURTHER NEEDS. CALL LIGHT IN REACH.
--- NOTE | 2019-05-22 22:20 | NUR ---
ANSWERED CALL LIGHT. SBA TO THE BATHROOM. PATIENT IS BACK IN BED. SCDS BACK ON. 2 WARM PACK MADE PER PATIENT'S REQUEST.
--- NOTE | 2019-05-22 23:56 | NUR ---
PT IN BED RESTING WITH EYES CLOSED, NAD. SCD'S IN PLACE. IVF INFUSING.
--- NOTE | 2019-05-23 02:24 | NUR ---
PT UP TO BR WITH, GAIT STEADY. BACK TO BED, LINDA WELL. SCD'S IN PLACE. MEDICATED WITH PRN FOR 8/10 ABDOMINAL PAIN. NO C/O NAUSEA.
--- NOTE | 2019-05-23 06:42 | NUR ---
PT UP TO BR WITH SBA. BACK TO BED, LINDA WELL. SCD'S IN PLACE. IVF INFUSING. PRN MOTRIN GIVEN FOR ABDOMINAL PAIN. PRN BENADRYL GIVEN PER PT REQUEST FOR ITCHING. MIDLINE INCISION WELL APPROXIMATED. OPEN TO AIR, NO REDNESS OR DRAINAGE NOTED. PT DENIES PASSING GAS. NO C/O NAUSEA.
--- NOTE | 2019-05-23 07:47 | NUR ---
Pt in bed sleeping at this time, eyes closed, resp even and non labored. No needs at this time. Call light within reach.
--- NOTE | 2019-05-23 08:10 | NUR ---
PATIENT AWAKE LAYING IN BED WAITING FOR BREAKFAST THAT WAS ORDERED. SHE DOES NOT NEED ANYTHING AT THIS TIME. CALL LIGHT IN REACH.
--- NOTE | 2019-05-23 09:14 | NUR ---
ADMIN TWO TABS OF [facility] FOR REPORTS OF 8/10 ABD PAIN.
--- NOTE | 2019-05-23 10:30 | NUR ---
Spoke with Remedios. States everyone is fixated on her bowels. Reminded that is why she is here. She denies passing gas or stool. Denies other needs.
--- NOTE | 2019-05-23 13:27 | NUR ---
TORMontrell FROM DR. GORDILLO TO CHANGE ROUTE OF ZOFRAN, PHENERGAN AND ATIVAN TO PO; CHANGED ORDER AT THIS TIME. ALSO NEW ORDER OBTAINED TO D/C IV FLUIDS AND ALSO OK TO LEAVE IV OUT PER DR. GORDILLO. COMMUNICATED TO DR. GORDILLO THAT PT HAS HAD SEVERAL IV SITES INFILTRATE THIS HOSPITAL VISIT. NO OTHER CONCERNS AT THIS TIME.
--- NOTE | 2019-05-23 13:45 | NUR ---
IN TO SHARE INFORMATION WITH PT REGARDING ABDOMENAL PAIN. SHE STATES THANK YOU BUT I KNOW THIS ALREADY. SHE CONTINUES TO TALK WITH ME ABOUT FEELING FRUSTRATED BECAUSE SHE HASN'T BEEN PASSING GAS OR HAVING A BOWEL MOVEMENT-- STATES THAT NOW IT HAS BEEN 8 DAYS. SHE HAS TRIED THE MEDS THEY HAVE GIVEN HER AND SHE IS WALKING IN HALLS. FEELS LIKE SHE IS NOT FEELING LIKE WE ARE LISTENING TO HER. PT TEARFUL WE ARE TALKING BECAUSE SHE FEELS SHE HAS BEEN HERE 6 DAYS AND IS NO BETTER YET AND DOESN'T HAVE ANY ANSWERS YET. SHE STATES SHE IS NOT A PERSON WHO CRIES AND YET SHE SAYS SHE IS CRYING TO ME SHE SAYS. IS FRUSTRATED BECAUSE THEY CAN'T FIGURE OUT WHATS WRONG AND SHE HURTS, STATES HER PAIN HAS NEVER BEEN LOWER THAN A 7 WHILE SHE IS HERE, BUT THAT SHE HAS A HIGH PAIN TOLERANCE. DENIED FURTHER CONCERNS, OR ISSUES. ASKED ME WHERE THE MEDS ARE THAT SHE ORDERED BEFORE I CAME IN THE ROOM. SOMETHING FOR NAUSEA AND SOME IBUPROFEN. I INFORMED PT NURSE BRETT NICK.
--- NOTE | 2019-05-23 14:00 | NUR ---
PT SITTING UP IN BED, TV ON. PT WAS IN SOME PAIN-7. PT THANKFUL THAT NG TUBE IS OUT. WILL CONTINUE TO FOLLOW NEEDED
--- NOTE | 2019-05-23 14:22 | NUR ---
up watching TV, c/o 10/29 abd pain, medicated with Motrin 800mg po and c/o dry heaving, medicated iwth Phenergan 12.5mg po. Pt stated she is NOT passing gas. Pt on Regular diet, no emesis noted
--- NOTE | 2019-05-23 16:54 | NUR ---
WATCHING TV AND ON PHONE, NO C/O PAIN, NO N/V. CALL LIGHT AT BEDSIDE, CONTINUES TO SATED SHE IS NOT PASSING GAS, NO BM SINCE 05/14/19.
--- NOTE | 2019-05-23 18:21 | NUR ---
PT AWAKE, WATCHING TV. WAS MEDICATED WITH MOTRIN AND NORCO PER C/O ABD PAIN WITH GOOD PAIN RELIEF, RECEIVED PHENERGAN PER DRY HEAVING, EFFECTIVE. RECEIVED VISTARIL PER ANXIETY EFFECTIVE. IV DC'D. ABD MIDLINE SUTURES IN PLACE, DRY, WELL APPROXIMATED. ABD SOFT ABD, MARISOL, DENIES PASSING GAS, NO BM SINCE 01/11. ON REGULAR DIET, TOLERATING WELL, SCDS IN PLACE.
--- NOTE | 2019-05-23 19:07 | NUR ---
c/o pain 8/10 and feeling nauseated. mnedicated with zofran 8mg po and norco 2 tabs
--- NOTE | 2019-05-23 19:33 | NUR ---
REPORT RECEIVED FROM DAY SHIFT RN. PT SITTING UP IN BED, ALERT AND ORIENTED. DAY SHIFT RN ADMINISTERING PRN FOR PAIN AND NAUSEA. SCD'S IN PLACE. NO QUESTIONS OR CONCERNS AT THIS TIME. CALL LIGHT IN REACH.
--- NOTE | 2019-05-23 21:07 | NUR ---
EVENING ASSESSMENT COMPLETE. SCHEDULED MEDS GIVEN WITHOUT ISSUE. BOWEL TONES ACTIVE, PT DENIES PASSING GAS. MIDLINE INCISION WELL APPROXIMATED. OPEN TO AIR. NO REDNESS OR DRAINAGE NOTED. SCD'S ON.
--- NOTE | 2019-05-23 21:10 | NUR ---
WARM PACKS PROVIDED PER PATIENT'S REQUEST.
--- NOTE | 2019-05-24 00:18 | NUR ---
PT RESTING IN BED WITH EYES CLOSED, NAD. SCD'S IN PLACE.
--- NOTE | 2019-05-24 02:31 | NUR ---
PRN GIVEN FOR 8/10 ABD PAIN. PT DENIES FURTHER NEEDS. CALL LIGHT IN REACH.
--- NOTE | 2019-05-24 03:00 | NUR ---
ANSWERED CALL LIGHT. WENT IN TO THE ROOM TO CHECKED SCD MAKING NOISE. DONE AND FIXED IT. WARM PACKS PROVIDED PER PATIENT'S REQUEST.
--- NOTE | 2019-05-24 03:49 | NUR ---
PRN GIVEN FOR 8/10 ABD PAIN. NO C/O NAUSEA AT THIS TIME. ASSESSMENT COMPLETE. MIDLINE INCISION WELL APPROXIMATED, NO REDNESS OR DRAINAGE. BOWEL TONES ACTIVE.
--- NOTE | 2019-05-24 05:25 | NUR ---
PT SLEPT WELL. ALERT AND ORIENTED, USES CALL LIGHT APPROPRIATELY. REG DIET, LINDA WELL. MIDLINE ABD INCISION, WELL APPROXIMATED. OPEN TO AIR. BOWEL TONES ACTIVE. PT DENIES PASSING GAS. SCHEDULED STOOL SOFTENERS. ABD PAIN 8/10 WHEN PT IS AWAKE. PRN MOTRIN AND NORCO. SCD'S. SBA. NO NAUSEA THIS SHIFT. NO IV ACCESS, DR. GORDILLO AWARE.
--- NOTE | 2019-05-24 07:14 | NUR ---
REPORT RECIEVED FROM SHOP WORKER STACY NICK.
--- NOTE | 2019-05-24 07:30 | NUR ---
MORNING ASSESSMENT DONE. PATIENT RATES ABD PAIN 7/10 AND SEEMS COMFORTABLE. DISCUSSED DISCHARGE TODAY, PATIENT WANTS TO SHOWER AND EAT BREAKFAST FIRST. MIDLINE INCISION, CDI, HEALING WELL.
[2019-05-24] MEDS ORDERED: MIRALAX17 GM PO (08:09)
--- NOTE | 2019-05-24 08:48 | DS ---
[facility] [address], [place] [address] Signed ADMISSION DATE: 05/18/2019 DISCHARGE DATE: 05/24/2019 FINAL DIAGNOSES: 1. Partial small-bowel obstruction versus ileus. 2. Heparin-induced thrombocytopenia. 3. Acute situational stress. PROCEDURES: 1. Mini diagnostic laparotomy with minimal lysis of adhesions and biopsy of jejunal serosal lesion. 2. CT scan of abdomen and pelvis. 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 She came to us with four days of upper abdominal pain and vomiting and dehydration. White count was normal, but the CT scan showed some proximal dilated jejunum with some swirling of the mesentery concerning for a bowel obstruction. We know she has had previous abdominal surgery, including her gallbladder, hysterectomy, and an appendectomy. She had been admitted as above and started on IV fluids and an NG tube. She had quite a bit out her NG tube, was overall more hydrated, but was still having significant pain in the left upper quadrant. White count was still normal. We took her to the operating room on 05/19/2019. We made a small midline laparotomy just above the umbilicus. We ran her small bowel from the ligament of Treitz all the way to the ileocecal valve. Fortunately, she had very minimal adhesions, just a little. She had very few adhesions down around the ileocecal valve from the omentum. We also examined the proximal jejunum and found it to be more or less unremarkable. It was slightly dilated and then it tapered into a normal diameter small bowel. We found no specific transition point. There was no internal hernia tethering that we could find. She had just a tiny 4 mm serosal fibrous appearing nodule in the proximal jejunum. We went ahead and removed that and sent that off to the pathology department. Afterwards, we kept her on IV fluids and she had quite a bit of stress. It sounds like she has gone through a divorce and had to change jobs and so forth. We used benzo and Ativan without much success. We switched over to hydroxyzine that seemed to help. Eventually, she seemed to be improving and we were correcting her electrolytes each day. She is a little anemic with her hemoglobin down around 11.9. Her platelet count had dropped by more than half down below 140,000. We stopped the Lovenox and the heparin flushes and sent off her heparin-induced thrombocytopenic antibodies. They are still pending. She never did pass flatus or BM, despite some MiraLAX and Senokot. We ended up removing the NG tube and we advanced her diet. She is now up to a regular diet and has done quite well. Her abdominal exam is quite benign. It is soft, flat, nontender. The incision Electronically Signed By: GODFREY GORDILLO MD 05/24/19 0848 PATIENT NAME: REMEDIOS HENSLEY DISCHARGE SUMMARY DATE OF : 72 REPORT #: [id number] PHYSICIAN: GODFREY GORDILLO MD PCP: CHARLENE OLIVIA PA-C REPORT IS CONFIDENTIAL AND NOT TO BE RELEASED WITHOUT AUTHORIZATION [facility] [address] [place] [phone] Signed is quite satisfactory. We had a long discussion regarding the constipation and she is comfortable with that. She said she will deal with that when she gets home. She plans on taking some additional MiraLAX. 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 She is quite familiar with various laxatives that she can purchase [id number]. At this point, she has reached discharge status and will be discharged to her home. DISCHARGE PLANS AND MEDICATIONS: Remedios will be discharged to home with a prescription for MiraLAX 17 g p.o. b.i.d. in 8 to 12 ounces of clear liquid. We will dispense 238 g with no refills. She can take that over next few days and stop when she has her 1st bowel movement. If she wants to add additional laxative, she is welcome to purchase those at the store. She can use Tylenol, ibuprofen, or Aleve [id number] for pain. She can resume her chronic medications including her Concerta. She is welcome to continue a regular diet. She can perform her activities of daily living including walking up and downstairs and showering, bathing as usual. She is welcome to drive as well. We will see her back in the office in a week or so for followup. She has expressed understanding and agrees above plan. MD VINH Calderon/KACYL /[id number] cc: [facility] CHRISS Mitchell MD Copies: CHARLENE OLIVIA PA-C, ANDREW L MD ~ Electronically Signed By: GODFREY GORDILLO MD 05/24/19 0848 PATIENT NAME: REMEDIOS HENSLEY BRIE DISCHARGE SUMMARY DATE OF : 72 REPORT #: [id number] PHYSICIAN: GODFREY GORDILLO MD PCP: CHARLENE OLIVIA PA-C REPORT IS CONFIDENTIAL AND NOT TO BE RELEASED WITHOUT AUTHORIZATION
--- NOTE | 2019-05-24 08:48 | NUR ---
PATIENT STATES THAT AFTER SHE IS DONE TALKING TO HER SON ON THE PHONE SHE WILL WANT TO TAKE A WALK THEN SHOWER. CALL BUTTON IN REACH. NO OTHER NEEDS AT THIS TIME.
--- NOTE | 2019-05-24 11:09 | NUR ---
PATIENT SITTING UP IN BED, INDICATED THAT SHE WAS WORKING ON ARRANGING A RIDE HOME, WOULD LIKE HER DISCHARGE INSTRUCTIONS AT NOON. PATIENT DENIES OTHER NEEDS AT THIS TIME.
--- NOTE | 2019-05-24 12:27 | NUR ---
PATIENT GIVEN WHEELCHAIR RIDE TO FRONT FOR TRANSPORT HOME.
--- NOTE | 2019-05-24 13:31 | NUR ---
PT ALERT, ORIENTED AND ATTENDING TO 2 PHONES WHILE I WAS IN RM. PT EXPRESSED SOME FRUSTRATION ABOUT STILL BEING HERE. HAD GOOD VISIT, EXTENDED A BLESSING WILL FOLLOW NEEDED
--- NOTE | 2019-05-24 15:40 | PATH ---
[facility] [address], [place] [address] Signed SPECIMEN(S): A PROXIMAL JEJUNUM SPECIMEN SOURCE: A. PROXIMAL JEJUNUM CLINICAL HISTORY: SBO. MICROSCOPIC DESCRIPTION: Histologic sections of all submitted blocks are examined by light microscopy. These findings, together with the gross examination, support the pathologic diagnosis. A panel of immunohistochemical stains (with appropriately staining controls) were performed. The mesothelial cells are faintly positive for WT-1 and calretinin; Jax-EP4 is completely negative. These findings support the above diagnosis. 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 COMMENT: The findings could represent tangential sectioning of serosa or a benign mesothelial cyst/entrapped mesothelial cells. As part of [facility]' Quality Improvement Program, this case was reviewed by another member of our pathology staff. NAL:cml:[id number] GROSS DESCRIPTION: The specimen, labeled "SS, proximal jejunum," is received in formalin and consists of one pink-velasco soft tissue fragment(s) that measures 0.6 cm in greatest dimension. The specimen is bisected and entirely submitted in cassette (A1). JS (under the direct supervision of a pathologist) The Gross Description was prepared using a voice recognition system. The report was reviewed for accuracy; however, sound-alike word errors, addition and/or deletions may occur. If there is any question about this report, please contact Client Services. ADDITIONAL NOTES: Immunohistochemical and/or in situ hybridization studies were performed on this PATIENT NAME: RAÚL HENSLEY PATHOLOGY DATE OF : 72 REPORT #: [id number] PHYSICIAN: JENNIFER HERCULES PCP: CHARLENE OLIVIA PA-C REPORT IS CONFIDENTIAL AND NOT TO BE RELEASED WITHOUT AUTHORIZATION [facility] [address], [place] [address] Signed case with the appropriate positive controls that react as expected. This test was developed and its performance characteristics determined by [facility]. It has not been cleared or approved by the U.S. Food and Drug Administration. The FDA has determined that such clearance or approval is not necessary. This test is used for clinical purposes. It should not be regarded as investigational or for research. [facility] is certified under the Clinical Laboratory Improvement Amendments of 1988 (CLIA) as qualified to perform high complexity clinical laboratory testing. PERFORMING LABORATORY: The technical component was performed by [facility], [address] [place] [id number] (Nut Picker: Nely Nielson MD; CLIA# [id number]). Professional interpretation was performed by [employer] [facility], [address] [address] (CLIA# [id number]). Diagnostician: Geneva Hernandez MD Pathologist Electronically Signed 05/24/2019 Copies: ~ PATIENT NAME: RAÚL HENSLEY PATHOLOGY DATE OF : 72 REPORT #: [id number] PHYSICIAN: JENNIFER HERCULES PCP: CHARLENE OLIVIA PA-C REPORT IS CONFIDENTIAL AND NOT TO BE RELEASED WITHOUT AUTHORIZATION
== END 2019-05-24 12:30 | disposition home or self-care (01) | DRG 346 ==
LOC: ED 11:57 → MS 15:02
PROVIDERS: ADMIT Colon & Rectal Surgery
PROC: 3E0T3BZ Introduction of Anesthetic Agent into Peripheral Nerves and Plexi, Percutaneous Approach (ICD-10-PCS; 2019-05-19)
PROC: 3E0T33Z Introduction of Anti-inflammatory into Peripheral Nerves and Plexi, Percutaneous Approach (ICD-10-PCS; 2019-05-19)
PROC: 0DBA0ZX Excision of Jejunum, Open Approach, Diagnostic (ICD-10-PCS; principal; 2019-05-19 11:15)
DX: K56.600 Partial intestinal obstruction, unspecified as to cause (principal); K56.7 Ileus, unspecified; K59.8 Other specified functional intestinal disorders; G89.18 Other acute postprocedural pain; F41.1 Generalized anxiety disorder; D75.82 Heparin induced thrombocytopenia (HIT); T45.515A Adverse effect of anticoagulants, initial encounter; M06.9 Rheumatoid arthritis, unspecified; E86.0 Dehydration; M35.00 Sjogren syndrome, unspecified; Z79.899 Other long term (current) drug therapy; Z87.891 Personal history of nicotine dependence; Z88.8 Allergy status to other drugs, medicaments and biological substances; Z88.5 Allergy status to narcotic agent
CPT/HCPCS: 00790; 36415; 64488; 71045; 74177; 76942; 80048; 80053; 81001; 83605; 83690; 83735; 84100; 84134; 85025; 86022; 96361; 96374; 96375; 96376; 99285-25; C9113; G0378; J0131; J0330; J0610; J0696; J1100; J1170; J1200; J1650; J1885; J2001; J2060; J2250; J2270; J2405; J2550; J2704; J2765; J3010; J3475; J3480; J7030; J7060; J7121; Q0177; Q9967